=== PATIENT | male | born 1980 | race Caucasian/White ===

== ENCOUNTER 2020-06-19 15:32 | Emergency (ER) | payer MEDICAID ==
[~2020-06-19] VITALS: Ht 193 cm; Wt 101.6 kg
[2020-06-19 15:40] VITALS: Ht 193 cm; Wt 101.6 kg
[2020-06-19 17:31] VITALS: BP 173/99
== END 2020-06-19 17:31 | disposition home or self-care (01) ==
LOC: ED 15:32
DX: L03.114 Cellulitis of left upper limb (principal); I10 Essential (primary) hypertension
CPT/HCPCS: 82962; Q0092